=== PATIENT | female | born 1980 | race Caucasian/White ===

== ENCOUNTER 2019-05-25 16:43 | Emergency (ER) | payer OTHER ==
[~2019-05-25] VITALS: Ht 165.1 cm; Wt 97.5 kg
[~2019-05-25 16:43] MED LIST: ALBU90OI INH; AMOX1XR PO; AZIT250 PO; Benadryl 50 mg50 MG PO; CODGUAEL PO; ERYT.5TO RIGHTEYE; HYDACE5 PO; LEVO750 PO; NAPR500 PO; Nix Lice Treatm59 ML TOP; PROM25 PO
[2019-05-25] MEDS ORDERED: Augmentin 875-1 EACH PO (19:18)
== END 2019-05-25 19:34 | disposition home or self-care (01) ==
LOC: ER 16:43
DX: J44.0 Chronic obstructive pulmonary disease with (acute) lower respiratory infection (principal); J44.1 Chronic obstructive pulmonary disease with (acute) exacerbation; J20.9 Acute bronchitis, unspecified; F17.210 Nicotine dependence, cigarettes, uncomplicated
CPT/HCPCS: 71046; 99283-25